=== PATIENT | female | born 1945 | race Asian ===

== ENCOUNTER 2022-04-28 09:35 | Outpatient (CLI) | payer MEDICARE, SELFPAY ==
--- NOTE | ~2022-04-28 | NM_ITS ---
EXAMINATION: NM suri stress w perfusion DATE: 04/28/2022 11:49 INDICATION: Chest pain, unspecified. TECHNIQUE: Rest images were obtained following intravenous administration of 9 mCi Tc99m tetrofosmin (Myoview). The patient was infused intravenously with Lexiscan (regadenoson). Then, 20.3 mCi Tc99m te trofosmin (Myoview) was administered intravenously, and stress images were obtained. Data was reconst ructed into short axis and horizontal and vertical long axis SPECT images. Gated SPECT images were al so obtained. COMPARISON: None. FINDINGS: There is no definite reversible or fixed perfusion abnormality to suggest ischemia or infar ction. There is no segmental wall motion abnormality. Left ventricular ejection fraction measures > 70%. IMPRESSION: 1. No definite ischemia or infarct. 2. Normal left ventricular ejection fraction measuring >70%. Reviewed, dictated and finalized at location A.
--- NOTE | 2022-04-28 10:23 | EST_ITS ---
Patient Info Name: Misael Levin Age: 77 years : 1945 Gender: Female Ht: 60 in Wt: 120 lbs BSA: 1.53 m2 Exam Date: 04/28/2022 10:41 AM Exam Location: [facility] [place] Stress Patient Status: Outpatient Admit Date: 04/28/2022 Staff Ordering Physician: Amadou Lyn DO Attending Provider: Amadou Lyn DO Exercise Technologist: Leslie Carver RDCS Exercise Physician: Amadou Lyn DO Exam Type: CA stress suri w NM Study Info Indications R07.9 - Chest pain, unspecified A regadenoson stress test was performed. Summary 1. 1. Negative lexiscan stress test for ischemic ST changes by ECG criteria. 2. 2. Baseline hypertension. 3. 3. Nuclear scan to follow and will be reported separately. Please correlate with it. 4. 4. Patient informed of the above results. Protocol: Lexiscan Stress ECG Details Stage: REST Duration (min): 1 min : 52 sec HR (bpm): 66 SBP (mmHg): 178 DBP (mmHg): 84 Stage: REST Duration (min): 11 min : 57 sec HR (bpm): 68 SBP (mmHg): 178 DBP (mmHg): 84 Stage: STAGE 1 Duration (min): 0 min : 59 sec HR (bpm): 78 SBP (mmHg): 182 DBP (mmHg): 62 Stage: RECOVERY Duration (min): 1 min : 0 sec HR (bpm): 85 SBP (mmHg): 182 DBP (mmHg): 62 Stage: RECOVERY Duration (min): 2 min : 0 sec HR (bpm): 87 SBP (mmHg): 135 DBP (mmHg): 66 Stage: RECOVERY Duration (min): 3 min : 0 sec HR (bpm): 85 SBP (mmHg): 136 DBP (mmHg): 73 Stage: RECOVERY Duration (min): 3 min : 40 sec HR (bpm): 85 SBP (mmHg): 136 DBP (mmHg): 73 Rest HR: 68 bpm Peak HR: 87 bpm Rest Sys BP: 178 mmHg Peak Sys BP: 182 mmHg Max Pred HR: 142 bpm % Max Pred HR: 61 % Target HR: 121 bpm Max RPP: 15,834 bpm*mmHg Termination Reason: Completed protocol Cardiac Symptoms: None Total Time: 1 min : 0 sec Rest Ricardo BP: 84 mmHg Peak Ricardo BP: 62 mmHg Total Dose: 0.4 mg Resting ECG Sinus rhythm, IRBBB. Stress ECG No ST changes. Arrhythmias None. Report Signatures
== END 2022-04-28 09:36 | disposition home or self-care (01) ==
PROVIDERS: PCP Family Medicine; Visit Provider Internal Medicine Cardiovascular Disease
DX: R07.9 Chest pain, unspecified (principal)
CPT/HCPCS: 78452; 93017; A9502; J2785

== ENCOUNTER 2023-08-09 15:16 | Outpatient (CLI) | payer MEDICARE, SELFPAY ==
[2023-08-10 09:05] LABS: Alanine Aminotransferase 8 U/L (6-35); Albumin Level 4.1 g/dL (3.5-5.1); Alkaline Phosphatase 61 U/L (38-126); Anion Gap 8 mmol/L (8-16); Aspartate Amino Transferase 30 U/L (14-36); Bilirubin,Total 0.5 mg/dL (0.2-1.3); Blood Urea Nitrogen 25 mg/dL (7-17); Carbon Dioxide 27 mmol/L (22-30); Chloride 103 mmol/L (98-107); Cholesterol 198 mg/dL (0-200); Estimated Glomerular Filt Rate 36; Glucose 91 mg/dL (65-110); HDL Direct 64 mg/dL; Potassium 4.5 mmol/L (3.4-5.0); Sodium 138 mmol/L (137-145); Triglycerides 108 mg/dL (<150)
[2023-08-10 09:16] LABS: LDL Cholesterol Direct 95 mg/dL
[2023-08-10 09:24] LABS: Vitamin D 25 Hydroxy 33.5 ng/mL
[2023-08-10 13:39] LABS: Basophils Percent Auto 0.7 % (0.2-1.2); Eosinophils Absolute Auto 0.2 K/mm3 (0-0.3); Eosinophils Percent Auto 3.8 % (0-4.4); Hematocrit 38.5 % (37.0-47.0); Hemoglobin 12.2 g/dL (12.0-15.0); Immature Granulocyte Absolute 0.01 K/mm3 (0.00-0.031); Immature Granulocyte Percent A 0.2 % (0-0.5); Lymphocytes Absolute Auto 1.27 K/mm3 (0.9-3.2); Lymphocytes Percent Auto 22.8 % (18.3-44.2); Mean Corpuscular HGB Conc 31.7 g/dl (32-36); Mean Corpuscular Hemoglobin 32.8 pg (26-34); Mean Corpuscular Volume 103.5 fl (80-100); Mean Platelet Volume 11.5 fl (7.4-10.4); Monocytes Absolute Auto 0.4 K/mm3 (0.1-0.6); Monocytes Percent Auto 7.9 % (2.6-8.5); Neutrophils Absolute Auto 3.6 K/mm3 (1.3-6.7); Neutrophils Percent Auto 64.6 % (45.5-73.1); Platelet Count Result 223 k/mm3 (150-375); Red Blood Count 3.72 M/mm3 (4.2-5.4); Red Cell Distribution Width 13.3 % (11.5-14.5); White Blood Count 5.6 K/mm3 (4.5-10.0)
== END 2023-08-09 15:17 | disposition home or self-care (01) ==
LOC: ANHGOSHLAB 15:18
PROVIDERS: PCP Family Medicine; Visit Provider Family Medicine
DX: N18.9 Chronic kidney disease, unspecified (principal); R53.83 Other fatigue; Z13.228 Encounter for screening for other metabolic disorders; Z13.220 Encounter for screening for lipoid disorders; E55.9 Vitamin D deficiency, unspecified; Z13.29 Encounter for screening for other suspected endocrine disorder
CPT/HCPCS: 36415; 80053; 80061; 82306; 84443; 85025

== ENCOUNTER 2024-03-14 10:04 | Outpatient (NON) | payer MEDICARE, SELFPAY ==
[2024-03-14 14:29] LABS: Appearance Urine Clear (Clear); Bacteria Urine None Seen /hpf; Bilirubin Urine Negative (Negative); Blood Urine 1+ (Negative); Color Urine Yellow (Yellow); Glucose Urine UA Negative (Negative); Ketones Urine Negative (Negative); Leukocyte Esterase Ur Negative LEU/UL (Negative); Nitrate Urine Negative (Negative); Non Pathogenic Casts 0-2; Protein Urine Negative (Negative); RBC Urine 0-2 /hpf (0-2); Squamous Epithelial Cell Urine None Seen /hpf (Few); WBC Urine 0-5 /hpf (0-3); pH Urine 6.5 (5.0-9.0)
[2024-03-14 14:33] LABS: Add Urine Microscopic? YES
== END 2024-03-14 10:05 | disposition home or self-care (01) ==
LOC: ANHGOSHLAB 10:06
PROVIDERS: PCP Family Medicine; Visit Provider Family Medicine
DX: R30.0 Dysuria (principal)
CPT/HCPCS: 81001

== ENCOUNTER 2024-05-28 11:50 | Outpatient (CLI) | payer MEDICARE, SELFPAY ==
--- NOTE | ~2024-05-28 | MR_ITS ---
EXAMINATION: MR brain/brain stem wo con DATE: 05/28/2024 13:12 INDICATION: Parkinson's disease TECHNIQUE: Magnetic resonance imaging (MRI) of the brain and brainstem was performed without intraven ous contrast. Sequences included sagittal and axial T1-weighted SE, axial diffusion-weighted FS SE, a xial 3D SWAN, axial T2-weighted FLAIR, and axial T2-weighted FSE. Postcontrast axial and coronal T1-w eighted SE was obtained. Apparent diffusion coefficient (ADC) maps were created. COMPARISON: None. FINDINGS: There are no areas of restricted diffusion to suggest acute infarction. No abnormal intracranial mass lesion. There focus of susceptibility artifact in the left cerebral hemisphere and a few and at leas t one in the right temporal occipital region consistent with sequela of old blood products related to chronic microhemorrhage. There are scattered areas of nonspecific increased T2-weighted signal inten sity in the cerebral white matter, predominantly involving the deep and periventricular white matter. There are no intraparenchymal signal abnormalities seen on the other pulse sequences. The ventricles are symmetric and normal in size. There are no abnormal extra-axial fluid collections. Flow voids ar e seen in the cerebral arteries on the T2-weighted sequences consistent with their expected patency. Left vertebral artery is dominant. Mild mucosal thickening the bilateral ethmoid sinuses and small mu cous retention cyst in the posterior right maxillary sinus. Visualized orbits and soft tissues are un remarkable. IMPRESSION: 1. Mild scattered hemispheric white matter T2 hyperintensity which is within normal limits for age an d likely sequela of chronic small vessel ischemic disease. No acute intracranial process. 2. A couple small foci of susceptibility artifact in the left cerebellum and right temporal occipital region consistent with old blood products related to chronic microhemorrhage. Reviewed, dictated and finalized at location A. IMPRESSION: 1. Mild scattered hemispheric white matter T2 hyperintensity which is within no rmal limits for age and likely sequela of chronic small vessel ischemic disease . No acute intracranial process. 2. A couple small foci of susceptibility artifact in the left cerebellum and ri ght temporal occipital region consistent with old blood products related to chr onic microhemorrhage.
== END 2024-05-28 11:51 | disposition home or self-care (01) ==
PROVIDERS: PCP Family Medicine; Visit Provider Family Medicine
DX: G20.A1 Parkinson's disease without dyskinesia, without mention of fluctuations (principal); G25.9 Extrapyramidal and movement disorder, unspecified; R90.82 White matter disease, unspecified
CPT/HCPCS: 70551

== ENCOUNTER 2024-07-15 11:26 | Outpatient (CLI) | payer MEDICARE, SELFPAY ==
[2024-07-18 10:09] LABS: Red Blood Cell Folate 726 ng/mL RBC (>280)
[2024-07-19 12:54] LABS: Vitamin D 1,25 (OH)2 Total 39 pg/mL (18-72); Vitamin D2 1,25 (OH)2 <8 pg/mL; Vitamin D3 1,25 (OH)2 39 pg/mL
[2024-07-20 01:59] LABS: Methylmalonic Acid 265 nmol/L (85-423)
== END 2024-07-15 11:27 | disposition home or self-care (01) ==
PROVIDERS: PCP Family Medicine; Visit Provider Psychiatry & Neurology Neurology
DX: E55.9 Vitamin D deficiency, unspecified (principal); G31.84 Mild cognitive impairment of uncertain or unknown etiology; G47.52 REM sleep behavior disorder; I95.1 Orthostatic hypotension
CPT/HCPCS: 36415; 82607; 82652; 82747; 83921

== ENCOUNTER 2024-08-15 15:44 | Outpatient (CLI) | payer MEDICARE, SELFPAY ==
[2024-08-15 19:58] LABS: Albumin Level 3.9 g/dL (3.5-5.1); Alkaline Phosphatase 57 U/L (38-126); Anion Gap 4 mmol/L (4-12); Aspartate Amino Transferase 21 U/L (14-36); Bilirubin,Total 0.5 mg/dL (0.2-1.3); Blood Urea Nitrogen 35 mg/dL (7-17); Calcium 8.8 mg/dL (8.4-10.2); Carbon Dioxide 32 mmol/L (22-30); Chloride 99 mmol/L (98-107); Estimated Glomerular Filt Rate 31; Glucose 106 mg/dL (65-110); Potassium 3.3 mmol/L (3.4-5.0); Sodium 135 mmol/L (137-145); Uric Acid 5.8 mg/dL (2.5-7.5)
[2024-08-15 20:53] LABS: Alanine Aminotransferase < 6 U/L (6-35)
[2024-08-15 21:14] LABS: Basophils Percent Auto 0.6 % (0.2-1.2); Eosinophils Absolute Auto 0.2 K/mm3 (0-0.3); Eosinophils Percent Auto 3.3 % (0-4.4); Hematocrit 31.5 % (37.0-47.0); Hemoglobin 10.7 g/dL (12.0-15.0); Immature Granulocyte Absolute 0.01 K/mm3 (0.00-0.031); Immature Granulocyte Percent A 0.2 % (0-0.5); Lymphocytes Absolute Auto 0.92 K/mm3 (0.9-3.2); Lymphocytes Percent Auto 14.6 % (18.3-44.2); Mean Corpuscular Hemoglobin 33.3 pg (26-34); Mean Corpuscular Volume 98.1 fl (80-100); Mean Platelet Volume 11.9 fl (7.4-10.4); Monocytes Absolute Auto 0.4 K/mm3 (0.1-0.6); Neutrophils Absolute Auto 4.7 K/mm3 (1.3-6.7); Neutrophils Percent Auto 74.3 % (45.5-73.1); Platelet Count Result 258 k/mm3 (150-375); Red Blood Count 3.21 M/mm3 (4.2-5.4); Red Cell Distribution Width 14.6 % (11.5-14.5); White Blood Count 6.3 K/mm3 (4.5-10.0)
--- OUTSIDE RECORDS SUMMARY | 2024-08-19 02:03 | XMS_ITS | Encounter Summary ---
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
--- OUTSIDE RECORDS SUMMARY | 2024-08-19 02:03 | XMS_ITS | Encounter Summary ---
Author Organization [facility] Address [address] [place] [address] Care Team Providers Care Under Baster Name Role Phone Nestor Levin MD Primary Care Provider [phone] Reason for Visit * Reason Comments Parkinson's Disease Encounter Details Date Type Department Care Team (Late st Contact Info) Description 04/24/2018 1:30 PM CDT Office Visit [facility] [address] 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 Gender Identity Not on file Sexual Orientation Not on file documented as of this encounter Last Filed Vital Signs Vital Sign Reading Time Taken Comments Blood Pressure 118/78 04/24/2018 1:25 PM CDT Pulse 88 04/24/2018 1:25 PM CDT Temperature - - Respiratory Rate 16 04/24/2018 1:25 PM CDT Oxygen Saturation - - Inhaled Oxygen Concentration - - Weight 56.2 kg (124 lb) 04/24/2018 1:25 PM CDT Height 121.9 cm (4') 04/24/2018 1:25 PM CDT Body Mass Index 37.84 04/24/2018 1:25 PM CDT documented in this encounter Progress Notes * Caio Dooley MD PhD - 04/24/2018 1:30 PM CDT Progress Note Patient: Misael Levin ( - 1945) is a 73 y.o. female. Visit Date: 04/24/2018 Chief Complaint Patient presents with ??? Parkinson's Disease History of Present Illness: This patient is seen in follow-up for Parkinson's disease. He started Sinemet 25/100. She has been taking one tablet t.i.d. with meals. Higher doses were causing some queasiness. At the current dose she has noted a marked improvement in her symptoms. In particular her walking is improved and is much more rapid. She does not notice the tremor is much. Her handwriting is improved. She feels she hasmore energy. She is not really aware of the medication kicking in or wearing off. She is not havingany excessive sleepiness. Past Medical History: Past Medical History: Diagnosis Date ??? Arthritis ??? HX OTHER MEDICAL Fibrocystic disease ??? Parkinson's disease ([facility]) Medications: Current Outpatient Prescriptions: ??? ALPRAZolam (XANAX) 0.5 mg tablet, Take 0.5 mg by mouth nightly as needed for anxiety., Disp: , Rfl: ??? bisacodyl EC (DULCOLAX EC) 5 mg EC tablet, Take 5 mg by mouth daily as needed for constipation., Disp: , Rfl: ??? carbidopa-levodopa (SINEMET) 25-100 mg per tablet, Take 1/2 table before meal for 1 week, take 1 tablet before meal for 1 week, and take 1 1/2 tablet before meal daily thereafter., Disp: 135 tablet, Rfl: 6 ??? nx-Ky-wpy-uagm-abecb-kmmvelyln 3-200-400 mg-mcg-mg tablet, Take by mouth., Disp: , Rfl: Physical Exam: Vitals: 04/24/18 1325 BP: 118/78 BP Location: Right arm Patient Position: Sitting Pulse: 88 Resp: 16 Weight: 56.2 kg (124 lb) Height: 121.9 cm (4') Language is fluent. Affect is normal. Cranial nerves: 2-12 are examined and are normal Motor examination: No drift. Facial masking: Mild Tremor: None seen Bradykinesia: Mild Muscle tone: Mild cogwheeling noted at the right elbow Fine motor: Fine finger movement amplitude mildly decreased on the right side. Dyskinesia: None seen Sensory: Normal soft touch and pinprick. Coordination: Intact urxwof-ul-ffpa testing and rapid alternating movements. Deep tendon reflexes: Normally active and symmetric. Gait: Her gait shows a good stride length. Arm swing is good. She performs a pivot turn with two steps. Her gait is reasonably rapid. Radiology: No procedure found. Assessment and Plan: 1. Parkinson's disease. She has had a gratifying response to levodopa therapy she is to continue Sinemet 25/100 1 tablet t.i.d.. She should stay physically active. I have recommended follow-up in sixmonths. Diagnoses and all orders for this visit: Parkinson's disease (CMS/HCC) (Primary) April 24, 2018 2:07 PM Dictation completed by [employer] software. Consultative Sales Associate variances may occur. Caio Dooley M.D., Ph.D. documented in this encounter Plan of Treatment Not on file documented as of this encounter Visit Diagnoses Diagnosis Parkinson's disease (HCC)- Primary Paralysis agitans documented in this encounter Care Teams Under Baster Relationship Specialty Start Date End Date Nestor Levin MD [address] [place] [address] PCP - General 03/14/11 05/18/20 documented as of this encounter
--- OUTSIDE RECORDS SUMMARY | 2024-08-19 02:03 | XMS_ITS | Clinical Summary ---
Author Organization [facility] Address [address] [place] [address] Care Team Providers Care Grease And Tallow Pumper Name Role Phone Go Modi DO Primary Care Provider [phone] Allergies No known active allergies Medications ALPRAZolam (XANAX) 0.5 mg tablet Take 0.5 mg by mouth nightly as needed for anxiety. Active bisacodyl EC (DULCOLAX EC) 5 mg EC tablet Take 1 tablet (5 mg total) by mouth daily as needed for constipation Active kj-Qp-hfb-iron- folic-phytostrl 3-200-400 mg-mcg-mg tablet Take by mouth. Activ e carbidopa-levod opa (SINEMET) 25-100 mg per tabletIndicatio ns:Parkinsonism Take 1/2 table before meal for 1 week, take 1 tablet before meal for 1 week, and take 1 1/2 tablet before meal daily thereafter. 135 tablet 6 8 Active allopurinoL (ZYLOPRIM) 300 mg tablet 1 Active Linzess 145 mcg capsule Take 1 capsule (145 mcg total) by mouth daily 2 Active fludrocortisone 0.1 mg tablet Take 1 tablet (0.1 mg total) by mouth daily before breakfast 30 tablet 11 2 Active midodrine (PROAMATINE) 2.5 mg tabletIndicatio ns:Symptomatic Orthostatic Hypotension Take 1 tablet (2.5 mg total) by mouth daily 30 tablet 5 4 Active clonazePAM (KlonoPIN) 0.5 mg tablet Take 1 tablet (0.5 mg total) by mouth nightly 30 tablet 5 4 Active Active Problems Problem Noted Date Diagnosed Date Orthostatic hypotension 02/16/2022 Mild cognitive impairment 05/19/2020 Dyskinesia 04/09/2019 Memory loss 04/09/2019 Parkinson's disease 04/24/2018 Immunizations Name Administration Dates Next Due Influenza, Quadrivalent, Hig h Dose, Preservative Free, Intrr 08/10/2020 Influenza, Trivalent, High D ose, Split, Preservative Free, Intramuscular 08/09/2019 Pneumococcal Polysaccharide PPV23 08/09/2019 Surgical History Surgery Date Site/Laterality Comments OTHER SURGICAL HISTORY Fibrocystic disease: Right breast fibroid removed OTHER SURGICAL HISTORY 09/03/2010 - 09/02/2011 Complex hemorrhoidectomy 02/11 COLONOSCOPY Medical History Medical History Date Comments Hx Other Medical Fibrocystic dis ease Parkinson's disease (HCC) Arthritis Family History Medical History Relation Name Comments Heart disease Father Heart disease; Hypertension Father Hypertension; Parkinsonism Father Parkinsonism Mother Relation Name Status Comments Father Mother Social History Tobacco Use Types Packs/Day Years Used Date Smoking Tobacco: Never Smokeless Tobacco: Never Tobacco Cessation:Counseling Given: Not Answered Alcohol Use Standard Drinks/Week Comments No 0 (1 standard drink = 0.6 oz pur e alcohol) Comments No Sex and Gender Information Value Date Recorded Sex Assigned at Not on file 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 Gender Identity Not on file Sexual Orientation Not on file Obstetrics History Last Filed Vital Signs Vital Sign Reading Time Taken Comments Blood Pressure 140/80 11/14/2023 1:11 PM CDT Pulse 78 11/14/2023 1:11 PM CDT Temperature - - Respiratory Rate 16 11/12/2019 12:25 PM CDT Oxygen Saturation 97% 11/14/2023 1:11 PM CDT Inhaled Oxygen Concentration - - Weight 55.8 kg (123 lb) 11/14/2023 1:11 PM CDT Height 157.5 cm (5' 2 ) 11/14/2023 1:11 PM CDT Body Mass Index 22.5 11/14/2023 1:11 PM CDT Plan of Treatment Health Maintenance Due Date Last Done Comments Depression Screening 1945 Fall Risk Assessment 1945 Osteoporosis Screening-Bone Density Scan 1945 DTaP/Tdap/Td Vaccine (1 - Tdap) 1955 Hepatitis B Screening 1962 Zoster Vaccine (1 of 2) 1994 Well Visit 65+ 2009 Pneumococcal vaccine 65+ (2 of 2 - PCV) 08/09/2020 08/09/2019 Covid-19 Vaccine (3 - season) 05/04/202402/2021, 11/08/2020 Influenza Vaccine (#1) 2024 , 08/10/2020, 08/09/2019 Insurance MEDICARE [facility] MEDICARE [facility] Care Teams Grease And Tallow Pumper Relationship Specialty Start Date End Date Go Modi DO [address] [place] [address] [address] PCP - General Family Medicine 11/14/23
--- OUTSIDE RECORDS SUMMARY | 2024-08-19 02:03 | XMS_ITS | Encounter Summary ---
Author Organization [facility] Address [address] [place] [address] Care Team Providers Care Skirt Maker Name Role Phone Nestor Levin MD Primary Care Provider [phone] Encounter Details Date Type Department Care Team (Late st Contact Info) Description 11/19/2020 12:30 PM CDT Office Visit [facility] [address] [facility] [address] [place] [address] Caio Dooley MD PhD [facility] [facility] [address] [place] [address] Parkinson's disease (CMS/HCC) (Primary Dx); Mild cognitive impairment Social History Tobacco Use Types Packs/Day Years Used Date Smoking Tobacco: Never Smokeless Tobacco: Never Alcohol Use Standard Drinks/Week Comments No 0 (1 standard drink = 0.6 oz pur e alcohol) Comments Unknown Sex and Gender Information Value Date Recorded Sex Assigned at Not on file 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 Gender Identity Not on file Sexual Orientation Not on file documented as of this encounter Last Filed Vital Signs Vital Sign Reading Time Taken Comments Blood Pressure 152/76 11/19/2020 12:09 PM CDT Pulse 75 11/19/2020 12:09 PM CDT Temperature - - Respiratory Rate - - Oxygen Saturation - - Inhaled Oxygen Concentration - - Weight 49.2 kg (108 lb 6.4 oz) 11/19/2020 12:09 PM CDT Height 157.5 cm (5' 2 ) 11/19/2020 12:09 PM CDT Body Mass Index 19.83 11/19/2020 12:09 PM CDT documented in this encounter Ordered Prescriptions Prescription Sig Dispense Quantity Refills Last Filled Start Date End Date rivastigmine (EXELON) 9.5 mg/[address] 9.5 mg on the skin daily 30 patch 11 11/19/2020 05/27/2021 rivastigmine (EXELON) 4.6 mg/[address] 4.6 mg on the skin daily 30 patch 11/19/2020 05/27/2021 documented in this encounter Progress Notes * Caio Dooley MD PhD - 11/19/2020 12:30 PM CDT Progress Note Patient: Misael Levin ( - 1945) is a 75 y.o. female. Visit Date: 11/19/2020 History of Present Illness: This patient is seen in follow-up for mild Parkinson's which was diagnosed in 2018. She has been maintained on Sinemet 25/100 one tablet tid. Her walking improved with this. She has never had much tremor. She is not really aware of the medication kicking in or wearing off. Her Parkinson's symptoms have been stable. The patient is also developed cognitive decline. At the last visit she was startedon donepezil. She tells me that she did not tolerated due to GI upset and discontinued it. Her is not with her today. He apparently dropped her off. Past Medical History: Past Medical History: Diagnosis Date ??? Arthritis ??? HX OTHER MEDICAL Fibrocystic disease ??? Parkinson's disease ([facility]) Medications: Current Outpatient Medications: ??? bisacodyl EC (DULCOLAX EC) 5 mg EC tablet, Take 5 mg by mouth daily as needed for constipation., Disp: , Rfl: ??? carbidopa-levodopa (SINEMET) 25-100 mg per tablet, Take 1/2 table before meal for 1 week, take 1 tablet before meal for 1 week, and take 1 1/2 tablet before meal daily thereafter., Disp: 135 tablet, Rfl: 6 ??? lu-Tg-zew-ebtb-igrjp-uiapagajl 3-200-400 mg-mcg-mg tablet, Take by mouth., Disp: , Rfl: ??? ALPRAZolam (XANAX) 0.5 mg tablet, Take 0.5 mg by mouth nightly as needed for anxiety., Disp: , Rfl: ??? rivastigmine (EXELON) 4.6 mg/24 hr, Place 4.6 mg on the skin daily, Disp: 30 patch, Rfl: 0 ??? rivastigmine (EXELON) 9.5 mg/24 hr, Place 9.5 mg on the skin daily, Disp: 30 patch, Rfl: 11 Physical Exam: Vitals: 11/19/20 1209 BP: 152/76 BP Location: Right arm Patient Position: Sitting Pulse: 75 Weight: 49.2 kg (108 lb 6.4 oz) Height: 157.5 cm (5' 2 ) Language is fluent. Affect is normal. Cranial nerves: 2-12 are examined and are normal Motor examination: No drift. Facial masking: Mild Tremor: None Bradykinesia: Mild Muscle tone: Subtle cogwheeling noted at the elbows Fine motor: Mildly decreased fine finger movement amplitude Dyskinesia: None Sensory: Normal soft touch and pinprick. Coordination: Nptsjh-ij-pldt testing and rapid alternating movements intact. Deep tendon reflexes: Symmetric. Gait: Mildly decreased stride length and right arm swing. She takes 2-3 steps to turn. Radiology: No procedure found. Assessment and Plan: 1. Parkinson's. Continue Sinemet 25/100 1 tid. Stay physically active. 2. Mild cognitive impairment. We will try the Exelon patch 4.6 milligrams daily for one month then increasing to 9.5 milligrams daily which has less GI side effects. If she does not tolerate this then memantine would be an option in the future. Again she was encouraged to stay physically and mentally active. 3. Follow-up in six months. Diagnoses and all orders for this visit: Parkinson's disease (CMS/[facility]) (Primary) Mild cognitive impairment Other orders - rivastigmine (EXELON) 4.6 mg/24 hr; Place 4.6 mg on the skin daily - rivastigmine (EXELON) 9.5 mg/24 hr; Place 9.5 mg on the skin daily November 19, 2020 1:03 PM Dictation completed by [employer] software. Spinner Operator variances may occur. Caio Dooley M.D., Ph.D. documented in this encounter Plan of Treatment Not on file documented as of this encounter Visit Diagnoses Diagnosis Parkinson's disease (HCC)- Primary Paralysis agitans Mild cognitive impairment Mild cognitive impairment, so stated documented in this encounter Discontinued Medications Medication Sig Discontinue Reason Start Date End Da te donepeziL (ARICEPT) 10 mg tablet Take 1 tablet (10 mg total) by mouth nightly Side effects 05/19/2020 11/19/2020 donepeziL (ARICEPT) 5 mg tablet Take one tablet daily for one month Side effects 05/19/2020 11/19/2020 documented as of this encounter Care Teams Skirt Maker Relationship Specialty Start Date End Date Nestor Levin MD [address] [place] [address] PCP - General Surgery 05/19/20 11/13/23 documented as of this encounter
--- OUTSIDE RECORDS SUMMARY | 2024-08-19 02:03 | XMS_ITS | Encounter Summary ---
Author Organization [facility] Address [address] [place] [address] Care Team Providers Care Special Education Bus Driver Name Role Phone Nestor Levin MD Primary Care Provider [phone] Encounter Details Date Type Department Care Team (Late st Contact Info) Description 03/01/2011 11:49 AM CDT - 03/01/2011 11:59 PM CDT Hospital Encounter [facility] Internal hemorrhoids with other complication Social History Tobacco Use Types Packs/Day Years Used Date Smoking Tobacco: Never Assessed Comments Unknown Sex and Gender Information Value Date Recorded Sex Assigned at Not on file Legal Sex Female 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
--- OUTSIDE RECORDS SUMMARY | 2024-08-19 02:03 | XMS_ITS | Encounter Summary ---
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
--- OUTSIDE RECORDS SUMMARY | 2024-08-19 02:03 | XMS_ITS | Encounter Summary ---
Author Organization [facility] Address [address] [place] [address] Care Team Providers Care General Assistant Name Role Phone Nestor Levin MD Primary Care Provider [phone] Encounter Details Date Type Department Care Team (Late st Contact Info) Description 03/01/2011 11:48 AM CDT - 03/01/2011 11:59 PM CDT Hospital Encounter [facility] Special screening for malignant neoplasms, colon; Benign neoplasm of colon; Internal hemorrhoids; Hemorrhage of rectum and anus Social History Tobacco Use Types Packs/Day Years Used Date Smoking Tobacco: Never Assessed Comments Unknown Sex and Gender Information Value Date Recorded Sex Assigned at Not on file 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
--- OUTSIDE RECORDS SUMMARY | 2024-08-19 02:03 | XMS_ITS | Encounter Summary ---
Author Organization [facility] Address [address] [facility] [place] [address] Care Team Providers Care Early Childhood Education Instructor Name Role Phone Nestor Levin MD Primary Care Provider [phone] Encounter Details Date Type Department Care Team (Late st Contact Info) Description 05/27/2021 12:30 PM CDT Office Visit [facility] Neurology [address] [facility] [address] [place] [address] Caio Dooley MD PhD [address] [facility] [address] [place] [address] Parkinson's disease (CMS/HCC) (HCC) (Primary Dx); Mild cognitive impairment Social History Tobacco Use Types Packs/Day Years Used Date Smoking Tobacco: Never Smokeless Tobacco: Never Alcohol Use Standard Drinks/Week Comments No 0 (1 standard drink = 0.6 oz pur e alcohol) Comments Unknown Sex and Gender Information Value Date Recorded Sex Assigned at Not on file 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 Gender Identity Not on file Sexual Orientation Not on file documented as of this encounter Last Filed Vital Signs Vital Sign Reading Time Taken Comments Blood Pressure 102/66 05/27/2021 12:22 PM CDT Pulse 75 05/27/2021 12:22 PM CDT Temperature - - Respiratory Rate - - Oxygen Saturation - - Inhaled Oxygen Concentration - - Weight 49.9 kg (110 lb) 05/27/2021 12:22 PM CDT Height 157.5 cm (5' 2 ) 05/27/2021 12:22 PM CDT Body Mass Index 20.12 05/27/2021 12:22 PM CDT documented in this encounter Ordered Prescriptions Prescription Sig Dispense Quantity Refills Last Filled Start Date End Date clonazePAM (KlonoPIN) 0.5 mg tablet Take 1 tablet (0.5 mg total) by mouth nightly 30 tablet 5 05/27/2021 2 documented in this encounter Progress Notes * Caio Dooley MD PhD - 05/27/2021 12:30 PM CDT Progress Note Patient: Misael Levin ( - 1945) is a 76 y.o. female. Visit Date: 05/27/2021 History of Present Illness: This patient is seen in follow-up for Parkinson's as well as cognitive impairment. Her Parkinson's remains stable on Sinemet 25/100 1.5 tablets in the morning and evening and one tablet at mid day. At the last visit I had recommended switching from donepezil to the Exelon patch. The patient ultimately decided to stay on the donepezil and is now not experiencing the GI upset that she had initially. She is not exercising much. She continues to do housework and cooks. There have been no falls. Past Medical History: Past Medical History: Diagnosis Date ??? Arthritis ??? HX OTHER MEDICAL Fibrocystic disease ??? Parkinson's disease ([facility]) ([facility]) Medications: Current Outpatient Medications: ??? allopurinoL (ZYLOPRIM) 300 mg tablet, , Disp: , Rfl: ??? ALPRAZolam (XANAX) 0.5 [...] thereafter., Disp: 135 tablet, Rfl: 6 ??? donepeziL (ARICEPT) 10 mg tablet, , Disp: , Rfl: ??? dc-Go-glm-dxvk-bdohl-ygtlgoqos 3-200-400 mg-mcg-mg tablet, Take by mouth., Disp: , Rfl: ??? clonazePAM (KlonoPIN) 0.5 mg tablet, Take 1 tablet (0.5 mg total) by mouth nightly, Disp: 30 tablet, Rfl: 5 Physical Exam: Vitals: 05/27/21 1222 BP: 102/66 BP Location: Right arm Patient Position: Sitting Pulse: 75 Weight: 49.9 kg (110 lb) Height: 157.5 cm (5' 2 ) Language is fluent. Affect is normal. Cranial nerves: 2-12 are examined and are normal Motor examination: No drift. Facial masking: Mild Tremor: None Bradykinesia: None Muscle tone: Mild cogwheeling in the right upper extremity at the elbow Fine motor: Fine finger movement amplitude mildly diminished bilaterally Dyskinesia: None Sensory: Normal soft touch and pinprick. Coordination: Ewcdko-xr-lddw testing and rapid alternating movements intact. Deep tendon reflexes: 1+ at the brachioradialis, biceps and triceps. 2+ at the knees. Gait: Narrow based. Mildly decreased stride length. Decreased arm swing bilaterally. At times will take 2-3 steps to turn. At other times a pivot turn. Radiology: No valid procedures specified. Assessment and Plan: 1. Parkinson's. Examination appears stable. I encouraged her to try to increase her physical activity and to exercise more. 2. Cognitive impairment. Continue donepezil 10 milligrams daily. Stay physically and mentally active. 3. Follow-up in six months. 4. My total encounter time on 05/27/2021 was 20 minutes which was spent in the activities documentedin the note. This includes time spent prior to the visit and after the visit in direct care of the patient. This time does not include time spent in any separately reportable services. Diagnoses and all orders for this visit: Parkinson's disease ([facility]) (HCC) (Primary) Mild cognitive impairment Other orders - clonazePAM (KlonoPIN) 0.5 mg tablet; Take 1 tablet (0.5 mg total) by mouth nightly May 27, 2021 12:50 PM Dictation completed by [employer] software. Braider Operator variances may occur. Caio Dooley M.D., Ph.D. documented in this encounter Plan of Treatment Not on file documented as of this encounter Visit Diagnoses Diagnosis Parkinson's disease (HCC)- Primary Paralysis agitans Mild cognitive impairment Mild cognitive impairment, so stated documented in this encounter Discontinued Medications Medication Sig Discontinue Reason Start Date End Da te rivastigmine (EXELON) 4.6 mg/[address] 4.6 mg on the skin daily Alternate therapy 11/19/2020 05/27/2021 rivastigmine (EXELON) 9.5 mg/[address] 9.5 mg on the skin daily Alternate therapy 11/19/2020 05/27/2021 documented as of this encounter Historical Medications * This list may reflect changes made after this encounter. Medication Sig Dispense Quantity Refills Last Filled Start D ate End Date allopurinoL (ZYLOPRIM) 300 mg tablet 04/12/2021 donepeziL (ARICEPT) 10 mg tablet 04/12/2021 02/16/2022 added in this encounter Care Teams Early Childhood Education Instructor Relationship Specialty Start Date End Date Nestor Levin MD [address] [place] [address] PCP - General Surgery 05/19/20 11/13/23 documented as of this encounter
--- OUTSIDE RECORDS SUMMARY | 2024-08-19 02:03 | XMS_ITS | Encounter Summary ---
Author Organization [facility] Address [address] [place] [address] Care Team Providers Care Reporter Anchor Name Role Phone Go Modi DO Primary Care Provider [phone] Reason for Visit * Reason Comments Parkinson's Disease Patient has fallen a few times. Encounter Details Date Type Department Care Team (Latest Contact Info) Description 11/14/2023 1:15 PM CDT Office Visit [facility] [address] [facility] [address] [place] [address] Caio Dooley MD PhD [address] [facility] [address] [place] [address] Parkinson's disease without dyskinesia or fluctuating manifestations (Primary Dx); Orthostatic hypotension; Memory loss Social History Tobacco Use Types Packs/Day Years Used Date Smoking Tobacco: Never Smokeless Tobacco: Never Tobacco Cessation:Counseling Given: Not Answered Alcohol Use Standard Drinks/Week Comments No 0 (1 standard drink = 0.6 oz pur e alcohol) Comments No Sex and Gender Information Value Date Recorded Sex Assigned at Not on file 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 Gender Identity Not on file Sexual Orientation Not on file documented as of this encounter Last Filed Vital Signs Vital Sign Reading Time Taken Comments Blood Pressure 140/80 11/14/2023 1:11 PM CDT Pulse 78 11/14/2023 1:11 PM CDT Temperature - - Respiratory Rate - - Oxygen Saturation 97% 11/14/2023 1:11 PM CDT Inhaled Oxygen Concentration - - Weight 55.8 kg (123 lb) 11/14/2023 1:11 PM CDT Height 157.5 cm (5' 2 ) 11/14/2023 1:11 PM CDT Body Mass Index 22.5 11/14/2023 1:11 PM CDT documented in this encounter Ordered Prescriptions Prescription Sig Dispense Quantity Refills Last Filled Start Date End Date midodrine (PROAMATINE) 2.5 mg tabletIndications:S ymptomatic Orthostatic Hypotension Take 1 tablet (2.5 mg total) by mouth daily 30 tablet 5 11/14/2023 documented in this encounter Progress Notes * Caio Dooley MD PhD - 11/14/2023 1:15 PM CDT Progress Note Patient: Misael Levin ( - 1945) is a 78 y.o. female. Visit Date: 11/14/2023 History of Present Illness: This patient is seen in follow-up for Parkinson's for the first time since February 2022. She was diagnosed in 2018 when she presented with bradykinesia, rigidity and shuffling gait. She has had responseto levodopa therapy but it has been limited by side effects of nausea early on and more recently orthostatic hypotension. She is on fludrocortisone 0.1 milligram in the morning. She takes Sinemet 25/100 1.5 tablets at roughly 9:00 am, 3:00 pm and 9:00 pm. She tires very easily. She had been doing reasonably well until recently when her blood pressure started dropping particularly in the morning. Her started giving her fludrocortisone at around 5:00 am. She did physical therapy at the end of this past year. She does not use a cane or a walker. She does not exercise. She falls. She remains very forgetful. She does not remember having seen me before. Past Medical History: Past Medical History: Diagnosis Date Arthritis HX OTHER MEDICAL Fibrocystic disease Parkinson's disease Medications: Current Outpatient Medications: allopurinoL (ZYLOPRIM) 300 mg tablet, , Disp: , Rfl: bisacodyl EC (DULCOLAX EC) 5 mg EC tablet, Take 1 tablet (5 mg total) by mouth daily as needed for constipation, Disp: , Rfl: carbidopa-levodopa (SINEMET) 25-100 mg per tablet, Take 1/2 table before meal for 1 week, take 1 tablet before meal for 1 week, and take 1 1/2 tablet before meal daily thereafter., Disp: 135 tablet, Rfl: 6 clonazePAM (KlonoPIN) 0.5 mg tablet, Take 1 tablet (0.5 mg total) by mouth nightly, Disp: 30 tablet, Rfl: 5 fludrocortisone 0.1 mg tablet, Take 1 tablet (0.1 mg total) by mouth daily before breakfast, Disp: 30 tablet, Rfl: 11 Linzess 145 mcg capsule, Take 1 capsule (145 mcg total) by mouth daily, Disp: , Rfl: ya-Ay-efa-geds-laakn-xfhgvhupm 3-200-400 mg-mcg-mg tablet, Take by mouth., Disp: , Rfl: ALPRAZolam (XANAX) 0.5 mg tablet, Take 0.5 mg by mouth nightly as needed for anxiety. (Patient not taking: Reported on 11/14/2023), Disp: , Rfl: midodrine (PROAMATINE) 2.5 mg tablet, Take 1 tablet (2.5 mg total) by mouth daily, Disp: 30 tablet,Rfl: 5 Physical Exam: Vitals: 11/14/23 1311 BP: 140/80 BP Location: Left arm Patient Position: Sitting Pulse: 78 SpO2: 97% Weight: 55.8 kg (123 lb) Height: 157.5 cm (5' 2 ) Language is fluent. Affect is normal. Cranial nerves: 2-12 are examined and are normal Motor examination: No drift. Normal bulk and strength. Facial masking: Mild Tremor: None Bradykinesia: Mild Muscle tone: Mild cogwheeling at the left elbow and shoulder. Fine motor: Fine finger movement amplitude decreased bilaterally Dyskinesia: None Sensory: Normal soft touch and pinprick. Coordination: Lxsaev-tz-mwgl testing and rapid alternating movements intact. Deep tendon reflexes: 1+ at the brachioradialis, biceps and triceps. Absent at the knees. Gait: Her gait is shuffling with decreased stride length and arm swing bilaterally. She is unsteadyparticularly on turns. Radiology: No valid procedures specified. Assessment and Plan: Parkinson's disease. Takes Sinemet every 5 hours instead of every 6 hours. Levodopa therapy is currently limited by orthostatic hypotension. Her 's as her blood pressure falls from about 100 systolic to 60 systolic when she goes from sitting to standing in the morning. I advised him to startgiving her fludrocortisone at eight or 830 am rather than 5:00 am. That would just lead to supine hypertension. Will add midodrine 2.5 milligrams in the morning as well. I encouraged good fluid intake and salt intake for fludrocortisone to be effective. No change in Sinemet at this time. Memory loss. 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 She has been intolerant of donepezilin the past and was not interested in trying other agents. Follow-up in six months. My total encounter time on 11/14/2023 was 40 minutes which was spent in the activities documented inthe note. This includes time spent prior to the visit and after the visit in direct care of the patient. This time does not include time spent in any separately reportable services. Diagnoses and all orders for this visit: Parkinson's disease without dyskinesia or fluctuating manifestations (Primary) Orthostatic hypotension Memory loss Other orders - midodrine (PROAMATINE) 2.5 mg tablet; Take 1 tablet (2.5 mg total) by mouth daily November 14, 2023 1:44 PM Dictation completed by [employer] software. Population Health Manager variances may occur. Caio Dooley M.D., Ph.D. documented in this encounter Plan of Treatment Not on file documented as of this encounter Visit Diagnoses Diagnosis Parkinson's disease without dyskinesia or fluctuating manifestations (HCC)- Primary Orthostatic hypotension Memory loss documented in this encounter Care Teams Reporter Anchor Relationship Specialty Start Date End Date Go Modi DO [facility] [address] [place] [address] PCP - General Family Medicine 11/14/23 documented as of this encounter
--- OUTSIDE RECORDS SUMMARY | 2024-08-19 02:03 | XMS_ITS | Encounter Summary ---
Author Organization [facility] Address [address] [place] [address] Care Team Providers Care Spar Machine Operator Helper Name Role Phone Nestor Levin MD Primary Care Provider [phone] Encounter Details Date Type Department Care Team (Late st Contact Info) Description 04/09/2019 12:30 PM CDT Office Visit [facility] [address] [facility] [address] [place] [id number] Caio Dooley MD PhD [address] [facility] [address] [place] [address] Parkinson's disease (CMS/HCC) (Primary Dx); Dyskinesia; Memory loss Social History Tobacco Use Types Packs/Day Years Used Date Smoking Tobacco: Never Smokeless Tobacco: Never Alcohol Use Standard Drinks/Week Comments No 0 (1 standard drink = 0.6 oz pur e alcohol) Comments Unknown Sex and Gender Information Value Date Recorded Sex Assigned at Not on file 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 Gender Identity Not on file Sexual Orientation Not on file documented as of this encounter Last Filed Vital Signs Vital Sign Reading Time Taken Comments Blood Pressure 140/78 04/09/2019 12:35 PM CDT Pulse 76 04/09/2019 12:35 PM CDT Temperature - - Respiratory Rate 16 04/09/2019 12:35 PM CDT Oxygen Saturation - - Inhaled Oxygen Concentration - - Weight 55.8 kg (123 lb) 04/09/2019 12:35 PM CDT Height 121.9 cm (4') 04/09/2019 12:35 PM CDT Body Mass Index 37.53 04/09/2019 12:35 PM CDT documented in this encounter Progress Notes * Caio Dooley MD PhD - 04/09/2019 12:30 PM CDT Progress Note Patient: Misael Levin ( - 1945) is a 74 y.o. female. Visit Date: 04/09/2019 No chief complaint on file. History of Present Illness: This patient is seen in follow-up for Parkinson's disease which was diagnosed in 2018. He started Sinemet 25/100. She has been taking one tablet t.i.d. with meals. Higher doses were causing some queasiness. At the current dose she has noted a marked improvement in her symptoms. In particular her walking is improved and is much more rapid. She does not notice the tremor is much. Her handwriting isimproved. She feels she has more energy. She is not really aware of the medication kicking in or wearing off. She is not having any excessive sleepiness. Interval history: She continues to do well on low dose of Sinemet. She takes one tablet t.i.d. Roughly at 7:00 a.m.-noon and 6:00 p.m. She is not experiencing any wearing off. There been no dyskinesias. She walks for exercise 2-3 days per week. Her notes that she has occasional muscle jerks in her sleep. Occasionally she has trouble falling asleep. He thinks her short-term memory is not quite as good although people's names for example will ultimately come to her. She is otherwise active throughout the day. There been no falls. Past Medical History: Past Medical History: Diagnosis Date ??? Arthritis ??? HX OTHER MEDICAL Fibrocystic disease ??? Parkinson's disease ([facility]) Medications: Current Outpatient Medications: ??? ALPRAZolam (XANAX) 0.5 mg tablet, Take [...] thereafter., Disp: 135 tablet, Rfl: 6 ??? qu-To-flb-imsw-zchzh-fsxofevcd 3-200-400 mg-mcg-mg tablet, Take by mouth., Disp: , Rfl: Physical Exam: Vitals: 04/09/19 1235 BP: 140/78 BP Location: Right arm Patient Position: Sitting Pulse: 76 Resp: 16 Weight: 55.8 kg (123 lb) Height: 121.9 cm (4') Language is fluent. Affect is normal. Cranial nerves: 2-12 are examined and are normal Motor examination: No drift. Facial masking: Mild Tremor: None seen Bradykinesia: Mild Muscle tone: Mild cogwheeling noted at the right elbow elicited with contralateral limb movement Fine motor: Fine finger movement amplitude mildly decreased on the right side. Dyskinesia: Occasional dyskinetic movements of the feet are noted when she is caring out other motor tasks. Sensory: Normal soft touch and pinprick. Coordination: Intact fkjvnk-zu-owap testing and rapid alternating movements. Deep tendon reflexes: Normally active and symmetric. Gait: Her gait shows a good stride length. Arm swing is good. She performs a pivot turn. Her gait is reasonably rapid. Radiology: No procedure found. Assessment and Plan: 1. Parkinson's disease. She has had a gratifying response to levodopa therapy she is to continue Sinemet 25/100 1 tablet t.i.d.. She should stay physically active. I have recommended follow-up in sixmonths. 2. Dyskinesias. This is a side effect of levodopa therapy and is quite mild at this time. 3. Memory loss. We will follow this clinically for now. Diagnoses and all orders for this visit: Parkinson's disease (CMS/HCC) (Primary) April 09, 2019 12:57 PM Dictation completed by [employer] software. Station Jailer variances may occur. Caio Dooley M.D., Ph.D. 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
--- OUTSIDE RECORDS SUMMARY | 2024-08-19 02:03 | XMS_ITS | Encounter Summary ---
Author Organization [facility] Address [address] [place] [address] Care Team Providers Care Linux Support Engineer Name Role Phone Nestor Levin MD Primary Care Provider [phone] Encounter Details Date Type Department Care Team (Late st Contact Info) Description 08/20/2020 Telephone [facility] [address] [phone] Aliyah Kam RN Social History Tobacco Use Types Packs/Day Years Used Date Smoking Tobacco: Never Smokeless Tobacco: Never Alcohol Use Standard Drinks/Week Comments No 0 (1 standard drink = 0.6 oz pur e alcohol) Comments Unknown Sex and Gender Information Value Date Recorded Sex Assigned at Not on file 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 Says she does not want a prescription for her sleep. Says her is a doctor and can get her whatever medication she needs. RELER HELPER * Telephone Encounter - Caio Dooley MD PhD - 08/20/2020 2:56 PM GAMBRELER HELPER She could try trazodone 25-50 milligrams qhs. RELER HELPER * Telephone Encounter - Aliyah Kam, MATILDA - 08/20/2020 1:54 PM GAMBRELER HELPER vm from daughter Raquel Levin (on HIPAA from 01/30/2018, but not listed on HIPAA 10/11/2018 or 12/19/19). [phone]. Says Misael has been having issues sleeping at night. Tried taking melatonin, not sure of dose maybe 10 mg. Says it hasn't helped. Wants to know if Dr. Dooley would suggest a medication for her to try. RELER HELPER documented in this encounter Plan of Treatment Not on file documented as of this encounter Visit Diagnoses Not on filedocumented in this encounter Care Teams Linux Support Engineer Relationship Specialty Start Date End Date Nestor Levin MD [address] [place] [address] PCP - General Surgery 05/19/20 11/13/23 documented as of this encounter
--- OUTSIDE RECORDS SUMMARY | 2024-08-19 02:03 | XMS_ITS | Encounter Summary ---
Author Organization [facility] Medical Group Address [address] [place] [address] Care Team Providers Care Senior Compliance Analyst Name Role Phone Nestor Levin MD Primary Care Provider [phone] Reason for Visit * Reason Comments Fatigue Tremors hands Encounter Details Date Type Department Care Team (Late st Contact Info) Description 01/30/2018 3:00 PM CDT Office Visit [facility] [address] [place] [address] Caio Dooley MD PhD [address] [facility] [address] [place] [address] Parkinson's disease (CMS/[facility]) (Primary Dx) Social History Tobacco Use Types Packs/Day Years Used Date Smoking Tobacco: Never Smokeless Tobacco: Never Alcohol Use Standard Drinks/Week Comments No 0 (1 standard drink = 0.6 oz pur e alcohol) Comments Unknown Sex and Gender Information Value Date Recorded Sex Assigned at Not on file Legal Sex Female 1:22 AM RECONSIGNMENT CLERK Gender Identity Not on file Sexual Orientation Not on file documented as of this encounter Last Filed Vital Signs Vital Sign Reading Time Taken Comments Blood Pressure 140/72 01/30/2018 3:39 PM CDT Pulse 79 01/30/2018 3:39 PM CDT Temperature - - Respiratory Rate 16 01/30/2018 3:39 PM CDT Oxygen Saturation - - Inhaled Oxygen Concentration - - Weight 58.1 kg (128 lb) 01/30/2018 3:39 PM CDT Height 121.9 cm (4') 01/30/2018 3:39 PM CDT Body Mass Index 39.06 01/30/2018 3:39 PM CDT documented in this encounter Patient Instructions * Patient Instructions* Caio Dooley MD PhD - 01/30/2018 3:00 PM CDT Sinemet 25/100 Dispense 135 Directions: 1/2 tablet tid before meals for one week Then one tablet tid before meals for one week Then 1-1/2 tablets 3 times daily before meals Six refills documented in this encounter Ordered Prescriptions Prescription Sig Dispense Quantity Refills Last Filled Start Date End Date carbidopa-levodopa (SINEMET) 25-100 mg per tabletIndications:P arkinsonism Take 1/2 table before meal for 1 week, take 1 tablet before meal for 1 week, and take 1 1/2 tablet before meal daily thereafter. 135 tablet 6 01/30/2018 documented in this encounter Progress Notes * Caio Dooley MD PhD - 01/30/2018 3:00 PM CDT NEW PATIENT CONSULT Patient ID: Misael Levin is a 72 y.o. female. This is a consult requested by Nestor Levin MD Reason for the consultation: Trouble walking and Jones is of movement. Chief Complaint Fatigue and Tremors (hands) HPI: This is a 72-year-old woman referred for neurologic consultation for problems with movement. This is been going on for over a year. She has been moving very slowly. She has begun shuffling her feet and is not swinging her arms when she walks. She feels off balance. She occasionally has a tremor in the right hand. Her handwriting has become smaller. She has trouble arising from a chair and turningover in bed. She stopped playing tennis two years ago after she fell. Overall she just feels sloweddown. She has no history of exposure to neuroleptic agents or antiemetics. One sister may have had Parkinson's disease. She occasionally will act out her dreams and this is been going on for two years. She had an MRI scan of the brain carried out which showed mild aging related changes. PMH: Osteoarthritis Past Surgical History: Procedure Laterality Date ??? COLONOSCOPY ??? OTHER SURGICAL HISTORY Fibrocystic disease: Right breast fibroid removed ??? OTHER SURGICAL HISTORY 2011 Complex hemorrhoidectomy 02/11 MEDICATIONS: Current Outpatient Prescriptions: ??? ALPRAZolam (XANAX) 0.5 mg tablet, Take 0.5 mg by mouth nightly as needed for anxiety., Disp: , Rfl: ??? bisacodyl EC (DULCOLAX EC) 5 mg EC tablet, Take 5 mg by mouth daily as needed for constipation., Disp: , Rfl: ??? eu-Xe-pti-ubwd-ojxjl-itucdaaym 3-200-400 mg-mcg-mg tablet, Take by mouth., Disp: , Rfl: ??? carbidopa-levodopa (SINEMET) 25-100 mg per tablet, Take 1/2 table before meal for 1 week, take 1 tablet before meal for 1 week, and take 1 1/2 tablet before meal daily thereafter., Disp: 135 tablet, Rfl: 6 SOCIALHX: reports that she has never smoked. She has never used smokeless tobacco. She reports that she does not drink alcohol. FHX: Family History Problem Relation Age of Onset ??? Heart disease Father Heart disease; ??? Hypertension Father Hypertension; ??? Parkinsonism Father ??? Parkinsonism Mother ROS: Review of Systems Constitutional: Positive for fatigue. Negative for unexpected weight change. HENT: Negative for ear pain, tinnitus and trouble swallowing. Eyes: Negative for pain. Respiratory: Negative for shortness of breath and wheezing. Cardiovascular: Negative for chest pain and palpitations. Gastrointestinal: Negative for abdominal pain, constipation and nausea. Genitourinary: Negative for dysuria and frequency. Musculoskeletal: Positive for arthralgias and back pain. Skin: Negative for rash. Neurological: Per HPI Hematological: Does not bruise/bleed easily. BP 140/72 (BP Location: Right arm, Patient Position: Sitting) Pulse 79 Resp 16 Ht 121.9 cm (4') Wt 58.1 kg (128 lb) BMI 39.06 kg/m?? GENERAL EXAMINATION: Well-appearing. NEUROLOGIC EXAMINATION: MENTAL STATUS: Attention, concentration and fund of knowledge normal. AFFECT: Normal. LANGUAGE: Fluent. No dysarthria CRANIAL NERVES: II: Pupils equal round and reactive to light. Sharp discs. Visual ayala are full to finger confrontation. III, IV, & : Extraocular movements full without nystagmus. V: Facial sensation intact to soft touch and pinprick. VII: Facial muscles symmetric. VIII: Hearing grossly intact. IX & X: Palate rises symmetrically. XI: Normal shoulder shrug. XII: Tongue protrudes to themidline. MOTOR: No drift. There is moderate facial masking. She has moderate bradykinesia. Fine finger movement amplitude is diminished more so on the right side than the left side. No tremor is seen. SENSORY: Light touch, pinprick, vibratory sensation and proprioception normal. COORDINATION: Lrffqb-zbho-bepbdz and rapid alternating movements of the hands normal. DEEP TENDON REFLEXES: 1+ brachioradialis, biceps and triceps. 2+ knees and 0+ ankles. PLANTAR RESPONSES: Flexor bilaterally. MCGREGOR'S: GAIT: Her gait shows a shortened stride length and decreased arm swing bilaterally. She takes 2-3 steps to turn. Her gait is quite slow. Tandem was unsteady. Romberg negative VASCULAR: No carotid bruits. HEART: Regular rate and rhythm. LABORATORY & DIAGNOSTIC STUDIES REVIEWED: I reviewed the MRI report as well as laboratory work provided. ASSESSMENT/PLAN: 1. This patient presents with a greater than one year history of bradykinesia, rigidity and shuffling gait. She has micrographia. She has had some dream related behavior as well. Overall Parkinson's disease is the most likely diagnosis even in the absence of tremor. She has had appropriate workup. I recommended beginning treatment with Sinemet 25/100. Common adverse side effects were discussed with the patient and her . We will start 1/2 tablet t.i.d. with meals for one week and then increase to one tablet t.i.d. with meals. If she tolerates it then we will increase to 1-1/2 tablets t.i.d.. I have encouraged her to stay physically active. I have recommended follow-up in three months. Diagnoses and all orders for this visit: Parkinson's disease ([facility]) (Primary) Other orders - carbidopa-levodopa (SINEMET) 25-100 mg per tablet; Take 1/2 table before meal for 1 week, take 1 tablet before meal for 1 week, and take 1 1/2 tablet before meal daily thereafter. Dictation completed by [employer] software. Receiver/Laborer variances may occur. Caio Dooley M.D., Ph.D. documented in this encounter Plan of Treatment Not on file documented as of this encounter Visit Diagnoses Diagnosis Parkinson's disease (HCC)- Primary Paralysis agitans documented in this encounter Historical Medications * This list may reflect changes made after this encounter. nq-Vw-hdl-iron-f olic-phytostrl 3-200-400 mg-mcg-mg tablet Take by mouth. bisacodyl EC (DULCOLAX EC) 5 mg EC tablet Take 1 tablet (5 mg total) by mouth daily as needed for constipation ALPRAZolam (XANAX) 0.5 mg tablet Take 0.5 mg by mouth nightly as needed for anxiety. added in this encounter Care Teams Senior Compliance Analyst Relationship Specialty Start Date End Date Nestor Levin MD [address] [place] [address] PCP - General 03/14/11 05/18/20 documented as of this encounter
--- OUTSIDE RECORDS SUMMARY | 2024-08-19 02:03 | XMS_ITS | Encounter Summary ---
Author Organization [facility] Medical Group Address [address] [place] [address] Care Team Providers Care Certified Master Locksmith Name Role Phone Nestor Levin MD Primary Care Provider [phone] Reason for Visit * Reason Comments Parkinson's Disease Encounter Details Date Type Department Care Team (Late st Contact Info) Description 10/09/2018 1:00 PM FOLLOW UP MANAGER Office Visit [facility] [address] [facility] [address] [place] [id number] Caio Dooley MD PhD [facility] [facility] [address] [address] Parkinson's disease (CMS/HCC) (Primary Dx) Social History Tobacco Use Types Packs/Day Years Used Date Smoking Tobacco: Never Smokeless Tobacco: Never Alcohol Use Standard Drinks/Week Comments No 0 (1 standard drink = 0.6 oz pur e alcohol) Comments Unknown Sex and Gender Information Value Date Recorded Sex Assigned at Not on file Legal Sex Female 1:22 AM FOLLOW UP MANAGER Gender Identity Not on file Sexual Orientation Not on file documented as of this encounter Last Filed Vital Signs Vital Sign Reading Time Taken Comments Blood Pressure 110/70 10/09/2018 1:01 PM FOLLOW UP MANAGER Pulse 72 10/09/2018 1:01 PM FOLLOW UP MANAGER Temperature - - Respiratory Rate 16 10/09/2018 1:01 PM FOLLOW UP MANAGER Oxygen Saturation - - Inhaled Oxygen Concentration - - Weight 54.4 kg (120 lb) 10/09/2018 1:01 PM FOLLOW UP MANAGER Height 121.9 cm (4') 10/09/2018 1:01 PM FOLLOW UP MANAGER Body Mass Index 36.62 10/09/2018 1:01 PM FOLLOW UP MANAGER documented in this encounter Progress Notes * Caio Dooley MD PhD - 10/09/2018 1:00 PM CST Progress Note Patient: Misael Levin ( - 1945) is a 73 y.o. female. Visit Date: 10/09/2018 Chief Complaint Patient presents with ??? Parkinson's [...] off. She is not havingany excessive sleepiness. Interval history: She continues to do well on low dose of Sinemet. She takes one tablet t.i.d. Roughly at 7:00 a.m.-noon and 6:00 p.m. She is not experiencing any wearing off. There been no dyskinesias. She is not exercising. She is otherwise active throughout the day. There been no falls. Past Medical History: Past Medical History: Diagnosis Date ??? Arthritis ??? HX OTHER MEDICAL Fibrocystic disease ??? Parkinson's disease ([facility]) Medications: Current Outpatient Prescriptions: ??? ALPRAZolam (XANAX) [...] thereafter., Disp: 135 tablet, Rfl: 6 ??? vr-Kd-ziy-qbvw-ompil-vclabnnkf 3-200-400 mg-mcg-mg tablet, Take by mouth., Disp: , Rfl: Physical Exam: Vitals: 10/09/18 1301 BP: 110/70 BP Location: Left arm Patient Position: Sitting Pulse: 72 Resp: 16 Weight: 54.4 kg (120 lb) Height: 121.9 cm (4') Language is [...] Normal soft touch and pinprick. Coordination: Intact xshgau-hk-upxp testing and rapid alternating movements. Deep tendon [...] She should stay physically active. I have encouraged her to start exercising actively. I have recommended follow-up in six months. There are no diagnoses linked to this encounter. October 09, 2018 1:48 PM Dictation completed by [employer] software. Foam Caster variances may occur. Caio Dooley M.D., Ph.D. OW UP MANAGER documented in this encounter Plan of Treatment Not on file documented as of this encounter Visit Diagnoses Diagnosis Parkinson's disease (HCC)- Primary Paralysis agitans documented in this encounter Care Teams Certified Master Locksmith Relationship Specialty Start Date End Date Nestor Levin MD [address] [place] [address] PCP - General 03/14/11 05/18/20 documented as of this encounter
--- OUTSIDE RECORDS SUMMARY | 2024-08-19 02:03 | XMS_ITS | Encounter Summary ---
Author Organization [facility] Medical Group Address [address] [place] [address] Care Team Providers Care Mat Maker Name Role Phone Nestor Levin MD Primary Care Provider [phone] Encounter Details Date Type Department Care Team (Late st Contact Info) Description 11/12/2019 12:30 PM CDT Office Visit [facility] [address] [facility] [address] [facility] [address] [place] [phone] Caio Dooley MD PhD [facility] [facility] [address] [place] [address] Parkinson's disease (CMS/HCC) (Primary Dx); Dyskinesia Social History Tobacco Use Types Packs/Day Years Used Date Smoking Tobacco: Never Smokeless Tobacco: Never Alcohol Use Standard Drinks/Week Comments No 0 (1 standard drink = 0.6 oz pur e alcohol) Comments Unknown Sex and Gender Information Value Date Recorded Sex Assigned at Not on file Legal Sex Female 1:22 AM BI SPECIALIST Gender Identity Not on file Sexual Orientation Not on file documented as of this encounter Last Filed Vital Signs Vital Sign Reading Time Taken Comments Blood Pressure 160/84 11/12/2019 12:25 PM CDT Pulse 76 11/12/2019 12:25 PM CDT Temperature - - Respiratory Rate 16 11/12/2019 12:25 PM CDT Oxygen Saturation - - Inhaled Oxygen Concentration - - Weight 51.3 kg (113 lb) 11/12/2019 12:25 PM CDT Height 121.9 cm (4') 11/12/2019 12:25 PM CDT Body Mass Index 34.48 11/12/2019 12:25 PM CDT documented in this encounter Progress Notes * Caio Dooley MD PhD - 11/12/2019 12:30 PM CDT Progress Note Patient: Misael Levin ( - 1945) is a 74 y.o. female. Visit Date: 11/12/2019 No chief complaint on file. History of [...] having any excessive sleepiness. Interval history: She takes Sinemet 25/100 1 tablet tid before meals roughly at 10:00 a.m.-1:00 pm and 6:00 pm. She does not experience any wearing off between the doses. She is not exercising much. She has not fallen. Her still thinks she is having some trouble with short-term memory but it has not progressed over the last six months. Past Medical History: Past Medical History: Diagnosis Date ??? Arthritis ??? HX OTHER MEDICAL Fibrocystic disease ??? Parkinson's disease ([facility]) Medications: Current Outpatient Medications: ??? ALPRAZolam (XANAX) [...] thereafter., Disp: 135 tablet, Rfl: 6 ??? fp-Ns-xyo-trsx-mtvgn-hkyxyfibj 3-200-400 mg-mcg-mg tablet, Take by mouth., Disp: , Rfl: Physical Exam: Vitals: 11/12/19 1225 BP: 160/84 BP Location: Right arm Patient Position: Sitting Pulse: 76 Resp: 16 Weight: 51.3 kg (113 lb) Height: 121.9 cm (4') Language is [...] Normal soft touch and pinprick. Coordination: Intact ynhcsa-vn-ejbl testing and rapid alternating movements. Deep tendon reflexes: Normally active and symmetric. Gait: Her gait shows a good stride length. Arm swing is good. She performs a pivot turn. Her gait is reasonably rapid. Radiology: No procedure found. Assessment and Plan: 1. Parkinson's disease. She has had a good response to low-dose Sinemet. I have encouraged her to increase her physical activity and have recommended that she look into Manolo Chi classes. She should stay physically active. I have recommended follow-up in six months. 2. Dyskinesias. This is a side effect of levodopa therapy and is quite mild at this time. 3. Memory loss. We will follow this clinically for now. I spent more than 15 minutes with the patient, including greater than 50% of the time in direct pibe-qd-ixmn contact providing counseling and education regarding the above problems. Diagnoses and all orders for this visit: Parkinson's disease (CMS/HCC) (Primary) Dyskinesia November 12, 2019 1:29 PM Dictation completed by [employer] software. Child Care variances may occur. Caio Dooley M.D., Ph.D. 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
--- OUTSIDE RECORDS SUMMARY | 2024-08-19 02:03 | XMS_ITS | Encounter Summary ---
Author Organization [facility] Medical Group Address [address] [place] [address] Care Team Providers Care Food Dehydrator Operator Name Role Phone Nestor Levin MD Primary Care Provider [phone] Reason for Visit * Reason Comments Follow-up Encounter Details Date Type Department Care Team (Late st Contact Info) Description 05/19/2020 12:00 PM CDT Office Visit [facility] [address] [place] [address] Caio Dooley MD PhD [facility][note 2][address] [facility] [address] [address] Parkinson's disease (CMS/HCC) (Primary Dx); Memory loss; Mild cognitive impairment Social History Tobacco Use Types Packs/Day Years Used Date Smoking Tobacco: Never Smokeless Tobacco: Never Alcohol Use Standard Drinks/Week Comments No 0 (1 standard drink = 0.6 oz pur e alcohol) Comments Unknown Sex and Gender Information Value Date Recorded Sex Assigned at Not on file Legal Sex Female 1:22 AM VEHICLE AND EQUIPMENT CLEANER Gender Identity Not on file Sexual Orientation Not on file documented as of this encounter Last Filed Vital Signs Vital Sign Reading Time Taken Comments Blood Pressure 150/92 05/19/2020 12:00 PM CDT Pulse 76 05/19/2020 12:00 PM CDT Temperature - - Respiratory Rate - - Oxygen Saturation - - Inhaled Oxygen Concentration - - Weight 49.9 kg (110 lb) 05/19/2020 12:00 PM CDT Height 157.5 cm (5' 2 ) 05/19/2020 12:00 PM CDT Body Mass Index 20.12 05/19/2020 12:00 PM CDT documented in this encounter Patient Instructions * Patient Instructions* Caio Dooley MD PhD - 05/19/2020 12:00 PM CDT Donepezil 5 milligrams Dispense 30 Directions: Take once daily for one month. No refills Donepezil 10 milligrams Dispense 90 Directions: Take once daily Four refills documented in this encounter Ordered Prescriptions Prescription Sig Dispense Quantity Refills Last Filled Start Date End Date donepeziL (ARICEPT) 10 mg tablet Take 1 tablet (10 mg total) by mouth nightly 90 tablet 4 05/19/2020 1 donepeziL (ARICEPT) 5 mg tablet Take one tablet daily for one month 30 tablet 05/19/2020 1 documented in this encounter Progress Notes * Caio Dooley MD PhD - 05/19/2020 12:00 PM CDT Progress Note Patient: Misael Levin ( - 1945) is a 75 y.o. female. Visit Date: 05/19/2020 Chief Complaint Patient presents with ??? Follow-up History of Present Illness: This patient is seen in follow-up for Parkinson's disease which was diagnosed in 2018. She started Sinemet 25/100. She has been taking one tablet t.i.d. with meals. Higher doses were causing some queasiness. At the current dose she has noted a marked improvement in her symptoms. In particular her walking is improved and is much more rapid. She does not notice the tremor is much. Her handwriting is improved. She feels she has more energy. She is not really aware of the medication kicking in or wearing off. She is not having any excessive sleepiness. She has not fallen. Her still thinksshe is having some trouble with short-term memory but it has not progressed over the last six months. Vitamin B12 level and TSH were checked recently and were normal. Past Medical History: Past Medical History: Diagnosis Date ??? Arthritis ??? HX OTHER MEDICAL Fibrocystic disease ??? Parkinson's disease ([facility]) Medications: Current Outpatient Medications: ??? ALPRAZolam (XANAX) [...] thereafter., Disp: 135 tablet, Rfl: 6 ??? mu-Bc-lse-ydar-pyzeu-jrrwoosoq 3-200-400 mg-mcg-mg tablet, Take by mouth., Disp: , Rfl: ??? donepeziL (ARICEPT) 10 mg tablet, Take 1 tablet (10 mg total) by mouth nightly, Disp: 90 tablet, Rfl: 4 ??? donepeziL (ARICEPT) 5 mg tablet, Take one tablet daily for one month, Disp: 30 tablet, Rfl: 0 Physical Exam: Vitals: 05/19/20 1200 BP: 150/92 BP Location: Left arm Patient Position: Sitting Pulse: 76 Weight: 49.9 kg (110 lb) Height: 157.5 cm (5' 2 ) She registers a five word memory phrase with one trial. She knows the month, the year and the time of day. She is able to count backwards from 20-1 and recite the months in reverse accurately. Recallis 1/5 objects on a memory phrase at 3 minutes yielding a score of eight on the Short blessed test. Language is fluent. Affect is normal. Cranial [...] Normal soft touch and pinprick. Coordination: Intact kfqqsf-gm-jbxv testing and rapid alternating movements. Deep tendon reflexes: Normally active and symmetric. Gait: Her gait shows a mildly decreased crease stride length and arm swing. She performs a pivot turn. Her gait [...] mild at this time. 3. Memory loss. 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 I have recommended initiating treatment with donepezil 5 milligrams daily for one month and then increasing to 10milligrams daily. Common adverse side effects and reasonable expectations were discussed. Follow-up in six months.. I spent more than 25 minutes with the patient, including greater than 50% of the time in direct oowo-jj-efqh contact providing counseling and education regarding the above problems. Diagnoses and all orders for this visit: Parkinson's disease (CMS/HCC) (Primary) Memory loss Mild cognitive impairment Other orders - donepeziL (ARICEPT) 5 mg tablet; Take one tablet daily for one month - donepeziL (ARICEPT) 10 mg tablet; Take 1 tablet (10 mg total) by mouth nightly May 19, 2020 2:07 PM Dictation completed by [employer] software. Volumetric Weigher variances may occur. Caio Dooley M.D., Ph.D. documented in this encounter Plan of Treatment Not on file documented as of this encounter Visit Diagnoses Diagnosis Parkinson's disease (HCC)- Primary Paralysis agitans Memory loss Mild cognitive impairment Mild cognitive impairment, so stated documented in this encounter Care Teams Food Dehydrator Operator Relationship Specialty Start Date End Date Nestor Levin MD [address] [place] [address] PCP - General Surgery 05/19/20 11/13/23 documented as of this encounter
--- OUTSIDE RECORDS SUMMARY | 2024-08-19 02:03 | XMS_ITS | Encounter Summary ---
Author Organization [facility] Address [address] [place] [address] Care Team Providers Care Winch Driver Name Role Phone Nestor Levin MD Primary Care Provider [phone] Encounter Details Date Type Department Care Team (Late st Contact Info) Description 02/16/2022 3:30 PM CDT Office Visit [facility] [address] [facility] [address] [place] [address] Caio Dooley MD PhD [address] [facility] [address] [place] [address] Parkinson's disease (CMS/HCC) (HCC) (Primary Dx); Memory loss; Orthostatic hypotension Social History Tobacco Use Types Packs/Day Years Used Date Smoking Tobacco: Never Smokeless Tobacco: Never Alcohol Use Standard Drinks/Week Comments No 0 (1 standard drink = 0.6 oz pur e alcohol) Comments Unknown Sex and Gender Information Value Date Recorded Sex Assigned at Not on file 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 Gender Identity Not on file Sexual Orientation Not on file documented as of this encounter Last Filed Vital Signs Vital Sign Reading Time Taken Comments Blood Pressure 110/72 02/16/2022 3:24 PM CDT Pulse 64 02/16/2022 3:24 PM CDT Temperature - - Respiratory Rate - - Oxygen Saturation - - Inhaled Oxygen Concentration - - Weight 49.9 kg (110 lb) 02/16/2022 3:24 PM CDT Height 157.5 cm (5' 2 ) 02/16/2022 3:24 PM CDT Body Mass Index 20.12 02/16/2022 3:24 PM CDT documented in this encounter Ordered Prescriptions Prescription Sig Dispense Quantity Refills Last Filled Start Date End Date fludrocortisone 0.1 mg tablet Take 1 tablet (0.1 mg total) by mouth daily before breakfast 30 tablet 11 02/16/2022 documented in this encounter Progress Notes * Caio Dooley MD PhD - 02/16/2022 3:30 PM CDT Progress Note Patient: Misael Levin ( - 1945) is a 76 y.o. female. Visit Date: 02/16/2022 History of Present Illness: This patient is seen in follow-up for Parkinson's and cognitive impairment. Two weeks ago she fell.According to her this occurred in the setting of low blood pressure which was measured at less than 80 systolic. He decreased her morning dose of Sinemet from 1.5 tablets to one tablet. Her blood pressure is good in the afternoon he says. She discontinued donepezil. It is not entirely clearwhy as she seemed to be tolerating it okay at the last visit. She has no appetite but her weight has been stable for the past year. She takes clonazepam 0.5 milligrams at bedtime occasionally for anxiety or insomnia. She does not exercise. Past Medical History: Past Medical History: Diagnosis Date ??? Arthritis ??? HX OTHER MEDICAL Fibrocystic disease ??? Parkinson's disease ([facility]) ([facility]) Medications: Current Outpatient Medications: ??? allopurinoL (ZYLOPRIM) [...] thereafter., Disp: 135 tablet, Rfl: 6 ??? Linzess 145 mcg capsule, Take 145 mcg by mouth daily, Disp: , Rfl: ??? tg-Gp-vvc-ffao-ksbdd-itbmgrzkc 3-200-400 mg-mcg-mg tablet, Take by mouth., Disp: , Rfl: ??? clonazePAM (KlonoPIN) 0.5 mg tablet, Take 1 tablet (0.5 mg total) by mouth nightly, Disp: 30 tablet, Rfl: 5 ??? fludrocortisone 0.1 mg tablet, Take 1 tablet (0.1 mg total) by mouth daily before breakfast, Disp: 30 tablet, Rfl: 11 Physical Exam: Vitals: 02/16/22 1524 BP: 110/72 BP Location: Left arm Patient Position: Sitting Pulse: 64 Weight: 49.9 kg (110 lb) Height: 157.5 cm (5' 2 ) Language is fluent. Affect is normal. Cranial nerves: 2-12 are examined and are normal Motor examination: No drift. Facial masking: Mild Tremor: None Bradykinesia: Mild Muscle tone: Subtle cogwheeling noted at the right elbow. Fine motor: Fine finger movements performed well Dyskinesia: None Sensory: Normal soft touch and pinprick. Coordination: Xaporq-zy-ebap testing and rapid alternating movements intact. Deep tendon reflexes: 1+ at the brachioradialis, biceps, triceps and knees. Gait: Mildly decreased stride length and arm swing. She performs a pivot turn. Radiology: No valid procedures specified. Assessment and Plan: 1. Parkinson's. Continue Sinemet at the current dosage. If her blood pressure comes up with the addition of fludrocortisone then increase the morning dose back to 1.5 tablets. Try to increase physical activity. 2. Orthostatic hypotension. Not an uncommon problem in Parkinson's or in relationship to levodopa therapy. Add fludrocortisone 0.1 milligram before breakfast. 3. Cognitive decline. Will not add any new medications at this time. The benefits are modest at best in any event. 4. Follow-up in six months. 5. My total encounter time on 02/16/2022 was 30 minutes which was spent in the activities documentedin the note. This includes time spent prior to the visit and after the visit in direct care of the patient. This time does not include time spent in any separately reportable services. Diagnoses and all orders for this visit: Parkinson's disease ([facility]) ([facility]) (Primary) Memory loss Orthostatic hypotension Other orders - fludrocortisone 0.1 mg tablet; Take 1 tablet (0.1 mg total) by mouth daily before breakfast February 16, 2022 4:08 PM Dictation completed by Jalbum Direct software. Pediatric Registered Nurse variances may occur. Caio Dooley M.D., Ph.D. documented in this encounter Plan of Treatment Not on file documented as of this encounter Visit Diagnoses Diagnosis Parkinson's disease (HCC)- Primary Paralysis agitans Memory loss Orthostatic hypotension documented in this encounter Discontinued Medications Medication Sig Discontinue Reason Start Date End Da te donepeziL (ARICEPT) 10 mg tablet Side effects 04/12/2021 02/16/2022 documented as of this encounter Historical Medications * This list may reflect changes made after this encounter. Linzess 145 mcg capsule Take 1 capsule (145 mcg total) by mouth daily 12/29/2021 added in this encounter Care Teams Winch Driver Relationship Specialty Start Date End Date Nestor Levin MD [address] [place] [address] PCP - General Surgery 05/19/20 11/13/23 documented as of this encounter
--- OUTSIDE RECORDS SUMMARY | 2024-08-19 02:03 | XMS_ITS | Encounter Summary ---
Author Organization [facility] Healthcare Address [address] [place] [address] Care Team Providers Care Digital Data Analyst Name Role Phone Nestor Levin MD Primary Care Provider [phone] Encounter Details Date Type Department Care Team (Late st Contact Info) Description 03/01/2011 8:03 AM CDT - 03/01/2011 2:30 PM CDT Hospital Encounter [facility] [place] [address] [address] Internal hemorrhoids with other complication; Anorectal polyp; Diffuse cystic mastopathy; Other specified disorders of intestines Social History Tobacco Use Types Packs/Day Years Used Date Smoking Tobacco: Never Assessed Comments Unknown Sex and Gender Information Value Date Recorded Sex Assigned at Not on file 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
--- OUTSIDE RECORDS SUMMARY | 2024-08-19 02:03 | XMS_ITS | Referral Summary ---
Author Organization [facility] Address [address] [place] [address] Care Team Providers Care Muck Miner Name Role Phone Go Modi DO Primary Care Provider [phone] Allergies No known active allergies Medications ALPRAZolam (XANAX) 0.5 mg tablet Take 0.5 mg by mouth nightly as needed for anxiety. Active bisacodyl EC (DULCOLAX EC) 5 mg EC tablet Take 1 tablet (5 mg total) by mouth daily as needed for constipation Active tn-Zr-wkz-iron- folic-phytostrl 3-200-400 mg-mcg-mg tablet Take by mouth. 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
== END 2024-08-15 15:45 | disposition home or self-care (01) ==
LOC: ANHGOSHLAB 15:45
PROVIDERS: PCP Family Medicine; Visit Provider Family Medicine
DX: M10.9 Gout, unspecified (principal); R53.83 Other fatigue; Z13.228 Encounter for screening for other metabolic disorders
CPT/HCPCS: 36415; 80053; 84550; 85025

== ENCOUNTER 2024-11-26 14:48 | Outpatient (CLI) | payer MEDICARE, SELFPAY ==
--- OUTSIDE RECORDS SUMMARY | 2024-11-26 16:06 | XMS_ITS | Clinical Summary ---
Author Organization [facility] Address [address] [place] [address] Care Team Providers Care Mac Artist Name Role Phone Go Modi DO Primary Care Provider [phone] Allergies No known active allergies Medications ALPRAZolam (XANAX) 0.5 mg tablet Take 0.5 mg by mouth nightly as needed for anxiety. Active bisacodyl EC (DULCOLAX EC) 5 mg EC tablet Take 1 tablet (5 mg total) by mouth daily as needed for constipation Active fz-Bh-btr-iron- folic-phytostrl 3-200-400 mg-mcg-mg tablet Take by mouth. 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
--- OUTSIDE RECORDS SUMMARY | 2024-11-26 16:07 | XMS_ITS | Referral Summary ---
Author Organization [facility] Address [address] [place] [address] Care Team Providers Care Ledger Clerk Name Role Phone Go Modi DO Primary Care Provider [phone] Allergies No known active allergies Medications ALPRAZolam (XANAX) 0.5 mg tablet Take 0.5 mg by mouth nightly as needed for anxiety. Active bisacodyl EC (DULCOLAX EC) 5 mg EC tablet Take 1 tablet (5 mg total) by mouth daily as needed for constipation Active br-Px-xnq-iron- folic-phytostrl 3-200-400 mg-mcg-mg tablet Take by mouth. 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
[2024-11-26 19:23] LABS: Basophils Percent Auto 0.5 % (0.2-1.2); Eosinophils Absolute Auto 0.2 K/mm3 (0-0.3); Eosinophils Percent Auto 2.5 % (0-4.4); Hematocrit 31.6 % (37.0-47.0); Hemoglobin 10.6 g/dL (12.0-15.0); Immature Granulocyte Absolute 0.02 K/mm3 (0.00-0.031); Immature Granulocyte Percent A 0.3 % (0-0.5); Lymphocytes Absolute Auto 0.81 K/mm3 (0.9-3.2); Lymphocytes Percent Auto 13.7 % (18.3-44.2); Mean Corpuscular HGB Conc 33.5 g/dl (32-36); Mean Corpuscular Hemoglobin 32.9 pg (26-34); Mean Corpuscular Volume 98.1 fl (80-100); Mean Platelet Volume 11.5 fl (7.4-10.4); Monocytes Absolute Auto 0.4 K/mm3 (0.1-0.6); Monocytes Percent Auto 5.9 % (2.6-8.5); Neutrophils Absolute Auto 4.6 K/mm3 (1.3-6.7); Neutrophils Percent Auto 77.1 % (45.5-73.1); Platelet Count Result 250 k/mm3 (150-375); Red Blood Count 3.22 M/mm3 (4.2-5.4); Red Cell Distribution Width 14.5 % (11.5-14.5); White Blood Count 5.9 K/mm3 (4.5-10.0)
[2024-11-26 19:57] LABS: Vitamin D 25 Hydroxy 43.3 ng/mL
[2024-11-26 20:05] LABS: Alanine Aminotransferase 6 U/L (6-35); Albumin Level 4.1 g/dL (3.5-5.1); Alkaline Phosphatase 47 U/L (38-126); Anion Gap 8 mmol/L (4-12); Aspartate Amino Transferase 27 U/L (14-36); Bilirubin,Total 0.6 mg/dL (0.2-1.3); Blood Urea Nitrogen 35 mg/dL (7-17); Calcium 8.9 mg/dL (8.4-10.2); Carbon Dioxide 32 mmol/L (22-30); Chloride 98 mmol/L (98-107); Estimated Glomerular Filt Rate 31; Glucose 98 mg/dL (65-110); Potassium 3.4 mmol/L (3.4-5.0); Sodium 138 mmol/L (137-145)
[2024-11-26 20:41] LABS: Thyroid Stimulating Hormone 0.771 uIU/mL (0.465-4.680)
== END 2024-11-26 14:49 | disposition home or self-care (01) ==
LOC: ANHGOSHLAB 14:49
PROVIDERS: PCP Emergency Medicine; Visit Provider Emergency Medicine
DX: R53.83 Other fatigue (principal); E55.9 Vitamin D deficiency, unspecified; I10 Essential (primary) hypertension; E78.5 Hyperlipidemia, unspecified
CPT/HCPCS: 36415; 80053; 82306; 84443; 85025

== ENCOUNTER 2025-01-28 15:28 | Outpatient (CLI) | payer MEDICARE, SELFPAY ==
--- OUTSIDE RECORDS SUMMARY | 2025-01-28 15:30 | XMS_ITS | Clinical Summary ---
Author Organization [facility] Address [address] [facility] [place] [address] Care Team Providers Care Private Inquiry Agent Name Role Phone Go Modi DO Primary Care Provider [phone] Allergies No known active allergies Medications ALPRAZolam (XANAX) 0.5 mg tablet Take 0.5 mg by mouth nightly as needed for anxiety. Active bisacodyl EC (DULCOLAX EC) 5 mg EC tablet Take 1 tablet (5 mg total) by mouth daily as needed for constipation Active ql-Ku-cea-iron- folic-phytostrl 3-200-400 mg-mcg-mg tablet Take by mouth. 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
--- OUTSIDE RECORDS SUMMARY | 2025-01-28 15:30 | XMS_ITS | Referral Summary ---
Author Organization [facility] Address [address] [facility] [place] [address] Care Team Providers Care Paint Roller Assembler Name Role Phone Go Modi DO Primary Care Provider [phone] Allergies No known active allergies Medications ALPRAZolam (XANAX) 0.5 mg tablet Take 0.5 mg by mouth nightly as needed for anxiety. Active bisacodyl EC (DULCOLAX EC) 5 mg EC tablet Take 1 tablet (5 mg total) by mouth daily as needed for constipation Active ap-In-nvl-iron- folic-phytostrl 3-200-400 mg-mcg-mg tablet Take by mouth. 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
[2025-01-28 19:35] LABS: Hematocrit 22.4 % (37.0-47.0); Hemoglobin 10.5 g/dL (12.0-15.0); Mean Corpuscular HGB Conc 46.9 g/dl (32-36); Mean Corpuscular Hemoglobin 50.2 pg (26-34); Mean Corpuscular Volume 107.2 fl (80-100); Mean Platelet Volume 11.4 fl (7.4-10.4); Platelet Count Result 253 k/mm3 (150-375); Red Blood Count 2.09 M/mm3 (4.2-5.4); White Blood Count 5.2 K/mm3 (4.5-10.0)
[2025-01-28 19:56] LABS: Albumin Level 3.9 g/dL (3.5-5.1); Anion Gap 7 mmol/L (4-12); Blood Urea Nitrogen 32 mg/dL (7-17); Carbon Dioxide 32 mmol/L (22-30); Chloride 99 mmol/L (98-107); Creatine Kinase 109 U/L (30-135); Estimated Glomerular Filt Rate 33; Glucose 106 mg/dL (65-110); Phosphorus 3.8 mg/dL (2.5-4.5); Potassium 3.3 mmol/L (3.4-5.0); Sodium 138 mmol/L (137-145)
[2025-01-28 20:01] LABS: Complement C3 80 mg/dL (88-165)
[2025-01-28 20:15] LABS: Cortisol Random 6.39 ug/dL
[2025-01-28 20:15] LABS: Creatinine Urine 132.1 mg/dL; Total Protein Urine Random 20 mg/dL; Ur Ttl Prot Creatinine Ratio 0.15 mg/mg (0-0.20)
[2025-01-28 20:16] LABS: Add Urine Microscopic? YES; Appearance Urine Clear (Clear); Bacteria Urine None Seen /hpf; Bilirubin Urine Negative (Negative); Blood Urine Trace (Negative); Color Urine Yellow (Yellow); Glucose Urine UA Negative (Negative); Hyaline Casts Urine Present /lpf; Ketones Urine Trace mg/dL (Negative); Leukocyte Esterase Ur 1+ LEU/UL (Negative); Nitrate Urine Negative (Negative); Protein Urine 1+ mg/dL (Negative); RBC Urine 0-2 /hpf (0-2); Specific Grav Ur 1.019 (1.001-1.035); Squamous Epithelial Cell Urine Moderate /hpf (Few); pH Urine 5.5 (5.0-9.0)
[2025-01-28 20:31] LABS: Erythrocyte Sedimentation Rate 46 mm/hr (0-20)
[2025-01-28 20:32] LABS: Parathyroid Intact 68.7 pg/mL (14.5-75.2)
[2025-01-29 07:38] LABS: Protein, Total 6.7 g/dL (6.1-8.1)
[2025-01-29 12:48] LABS: Complement Total CH50 60 U/mL (31-60)
[2025-01-29 19:54] LABS: Albumin 3.9 g/dL (3.8-4.8); Alpha 1 Globulin 0.2 g/dL (0.2-0.3); Alpha 2 Globulin 0.6 g/dL (0.5-0.9); Beta 1 Globulin 0.3 g/dL (0.4-0.6); Gamma Globulin 1.4 g/dL (0.8-1.7)
[2025-01-30 11:49] LABS: Kappa\\Lambda Light Chains 1.58 (0.26-1.65)
[2025-02-01 17:57] LABS: Immunofixation, Serum Normal pattern.
== END 2025-01-28 15:29 | disposition home or self-care (01) ==
LOC: ANHGOSHLAB 15:29
PROVIDERS: PCP Emergency Medicine; Visit Provider Internal Medicine Nephrology
DX: N18.32 Chronic kidney disease, stage 3b (principal); I95.1 Orthostatic hypotension
CPT/HCPCS: 36415; 80069; 81001; 82533; 82550; 82570; 83883; 83970; 84155; 84156; 84165; 85027; 85652; 86038; 86039; 86160; 86162; 86334; 86335

== ENCOUNTER 2025-01-30 13:45 | Outpatient (CLI) | payer MEDICARE, SELFPAY ==
--- NOTE | ~2025-01-30 | US_ITS ---
EXAM: RENAL ULTRASOUND HISTORY: N18.32 - Chronic kidney disease, stage 3b COMPARISON: None FINDINGS: RIGHT KIDNEY: 7.1 x 2.9 x 3.6 cm. The parenchyma of the right kidney is unremarkable in thickness and echogenicity. No hydronephrosis or bulky renal calculi. LEFT KIDNEY: 7.7 x 2.9 x 4.5 cm The parenchyma of the left kidney is unremarkable in thickness and echogenicity. No hydronephrosis or renal calculi. BLADDER: The bladder is minimally distended and demonstrates bilateral ureteral jets. IMPRESSION: No hydronephrosis or renal calculi. Unremarkable sonographic evaluation of the bilateral kidneys, as detailed above. Reviewed, dictated and finalized at location A. IMPRESSION: No hydronephrosis or renal calculi. Unremarkable sonographic evaluation of the bilateral kidneys, as detailed above .
== END 2025-01-30 13:46 | disposition home or self-care (01) ==
LOC: GOSHIMG 13:46
PROVIDERS: PCP Emergency Medicine; Visit Provider Internal Medicine Nephrology
DX: N18.32 Chronic kidney disease, stage 3b (principal); I95.1 Orthostatic hypotension
CPT/HCPCS: 76775

== ENCOUNTER 2025-01-31 11:29 | Outpatient (NON) | payer MEDICARE, SELFPAY | END 2025-01-31 11:30 | disposition home or self-care (01) | PROVIDERS: PCP Emergency Medicine; Visit Provider Internal Medicine Nephrology | DX: R82.81 Pyuria (principal) | CPT/HCPCS: 87086 ==

== ENCOUNTER 2025-02-06 08:55 | Outpatient (CLI) | payer MEDICARE, SELFPAY ==
[2025-02-06 10:10] LABS: Cortisol Baseline 8.49 ug/dL
== END 2025-02-06 08:56 | disposition home or self-care (01) ==
LOC: ANHLAB 08:57
PROVIDERS: PCP Emergency Medicine; Visit Provider Internal Medicine Nephrology
DX: R79.89 Other specified abnormal findings of blood chemistry (principal); I95.1 Orthostatic hypotension
CPT/HCPCS: 36415; 82533; 96372; J0834

== ENCOUNTER 2025-02-25 14:52 | Outpatient (CLI) | payer MEDICARE, SELFPAY ==
[2025-02-25 15:46] LABS: Vitamin D 25 Hydroxy 42.9 ng/mL
[2025-02-25 15:59] LABS: Anion Gap 9 mmol/L (4-12); Blood Urea Nitrogen 26 mg/dL (7-17); Calcium 8.8 mg/dL (8.4-10.2); Carbon Dioxide 31 mmol/L (22-30); Chloride 100 mmol/L (98-107); Estimated Glomerular Filt Rate 34; Glucose 122 mg/dL (65-110); Potassium 3.1 mmol/L (3.4-5.0); Sodium 140 mmol/L (137-145)
[2025-02-27 12:23] LABS: Red Blood Cell Folate 740 ng/mL RBC (>280)
== END 2025-02-25 14:53 | disposition home or self-care (01) ==
LOC: ANHLAB 14:54
PROVIDERS: PCP Emergency Medicine; Visit Provider Emergency Medicine
DX: E53.8 Deficiency of other specified B group vitamins (principal); Z13.228 Encounter for screening for other metabolic disorders; E55.9 Vitamin D deficiency, unspecified
CPT/HCPCS: 36415; 80048; 82306; 82607; 82747

== ENCOUNTER 2025-03-21 10:59 | Outpatient (CLI) | payer MEDICARE, SELFPAY ==
--- OUTSIDE RECORDS SUMMARY | 2025-03-21 11:01 | XMS_ITS | Referral Summary ---
Author Organization [facility] Address [address] [facility] [place] [address] Care Team Providers Care Dice Table Operator Name Role Phone Go Modi DO Primary Care Provider [phone] Allergies No known active allergies Medications ALPRAZolam (XANAX) 0.5 mg tablet Take 0.5 mg by mouth nightly as needed for anxiety. Active bisacodyl EC (DULCOLAX EC) 5 mg EC tablet Take 1 tablet (5 mg total) by mouth daily as needed for constipation Active sw-Nl-tyq-iron- folic-phytostrl 3-200-400 mg-mcg-mg tablet Take by mouth. 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
--- OUTSIDE RECORDS SUMMARY | 2025-03-21 11:01 | XMS_ITS | Clinical Summary ---
Author Organization [facility] Address [address] [facility] [place] [address] Care Team Providers Care Safety Tech Name Role Phone Go Modi DO Primary Care Provider [phone] Allergies No known active allergies Medications ALPRAZolam (XANAX) 0.5 mg tablet Take 0.5 mg by mouth nightly as needed for anxiety. Active bisacodyl EC (DULCOLAX EC) 5 mg EC tablet Take 1 tablet (5 mg total) by mouth daily as needed for constipation Active ku-Je-nct-iron- folic-phytostrl 3-200-400 mg-mcg-mg tablet Take by mouth. 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
[2025-03-21 13:17] LABS: Potassium 3.8 mmol/L (3.4-5.0)
== END 2025-03-21 11:00 | disposition home or self-care (01) ==
LOC: ANHLAB 11:00
PROVIDERS: PCP Emergency Medicine; Visit Provider Emergency Medicine
DX: E87.6 Hypokalemia (principal)
CPT/HCPCS: 36415; 84132